=== PATIENT | female | born 1970 | race Caucasian/White ===

== ENCOUNTER 2017-09-23 02:17 | Inpatient (IN) | payer OTHER ==
[~2017-09-23] VITALS: Ht 160 cm; Wt 77.1 kg
--- NOTE | 2017-09-23 02:23 | NUR ---
PT AMBULATORY TO ER BED 7. PT BIB FAMILY C/O CP SINCE 10 AM YESTERDAY. PT STATES SHE DID HAVE SOME SOB WITH THE CP. PT PLACED IN GOWN AND ON GUIDANCE SERVICES COORDINATOR. VSS/RESP EVEN UNLABORED/NAD NOTED/SKIN WARM AND DRY/DENIES N-V-D/AOX4. AWAITING MD NAVARRO.
--- NOTE | 2017-09-23 02:45 | NUR ---
18G IV TO L AC USING ASEPTIC TECH, BLOOD HANDED OVER TO THE LAB.
--- NOTE | 2017-09-23 02:47 | NUR ---
EMT AT BEDSIDE FOR EKG.
--- NOTE | 2017-09-23 02:50 | NUR ---
AT BEDSIDE FOR EVAL.
[2017-09-23] MEDS ORDERED: ASPIRIN 81 MG TAB.CHEW PO ONE (03:00)
[2017-09-23] MEDS ORDERED: ASPIRIN 81 MG TAB.CHEW ONE (03:13)
[2017-09-23 03:14] LABS: BASOPHILS % (AUTO) 0.4 % (0.0-2.0); EOSINOPHILS # (AUTO) 0.1 /CMM (0.0-0.7); EOSINOPHILS % (AUTO) 1.5 % (0.0-6.0); HEMATOCRIT 37 % (33-45); HEMOGLOBIN 12.3 g/dL (11.5-14.8); LYMPHOCYTES # (AUTO) 3.5 /CMM (0.8-4.8); MEAN CORPUSCULAR HEMOGLOBIN 26 PG (26.0-33.0); MEAN CORPUSCULAR HGB CONC 34 g/dl (31.0-36.0); MEAN CORPUSCULAR VOLUME 77 fL (82-100); MONOCYTES # (AUTO) 0.6 /CMM (0.1-1.30); MONOCYTES % (AUTO) 6.6 % (2.0-12.0); NEUTROPHILS # (AUTO) 4.9 /CMM (1.8-8.9); NEUTROPHILS % (AUTO) 53.5 % (43.0-81.0); PLATELET COUNT (AUTO) 269 /CMM (150-450); RED BLOOD CELL COUNT(AUTO) 4.77 MIL/uL (4.0-5.2); WHITE BLOOD COUNT (AUTO) 9.1 K/uL (4.3-11.0)
[2017-09-23 03:26] LABS: CALCIUM, SERUM 8.7 mg/dL (8.5-10.1); CARBON DIOXIDE 27 mmol/L (21-32); CHLORIDE 105 mmol/L (98-107); CREATININE 0.7 mg/dL (0.6-1.3); GLUCOSE 123 mg/dL (74-106); POTASSIUM 3.7 mmol/L (3.5-5.1); SODIUM SERUM 142 mmol/L (136-145); UREA NITROGEN, BLOOD 12 mg/dL (7-18)
[2017-09-23 03:28] LABS: INR 0.9 (0.87-1.13); PROTHROMBIN TIME 9.3 SECS (9.5-12.7)
[2017-09-23 03:35] LABS: TROPONIN I < 0.017 ng/mL (0.00-0.056)
--- NOTE | 2017-09-23 04:10 | NUR ---
PT SPEAKING WITH FAMILY AT BEDSIDE. VSS.
--- NOTE | 2017-09-23 06:00 | NUR ---
PT UP TO THE RESTROOM WITH STEADY GAIT.
--- NOTE | 2017-09-23 06:30 | NUR ---
Jossie streeter in EDM - 09/23/17 at 0712 by BRENNEN MD AT BEDSIDE SPEAKING WITH HUSBAND. PITTS.
--- NOTE | 2017-09-23 07:24 | NUR ---
REPORT GIVEN TO PRAKASH ANDREWS FOR STEPHANIE.
--- NOTE | 2017-09-23 10:23 | NUR ---
PT TRANSPORTED TO [facility]
[2017-09-23 10:42] LABS: ALBUMIN 3.5 g/dL (3.4-5.0); BILIRUBIN,TOTAL 0.2 mg/dL (0.2-1.0); MAGNESIUM 1.7 mg/dL (1.8-2.4); PHOSPHORUS 3.4 mg/dL (2.5-4.9); TOTAL PROTEIN, SERUM 7.3 g/dL (6.4-8.2)
--- NOTE | 2017-09-23 10:55 | NUR ---
RN NOTES: PATIENT ADMITTED FROM ER. PATIENT STABLE. NONLABORED BREATHING NOTED ON ROOM AIR. NO SIGNS OF DISTRESS NOTED. PATIENT STATES THAT CHEST PAIN IS MILD AND IS AT A 4, NONRADIATING, NO PRESSURE IS FELT AT THE MOMENT. NO SHORTNESS OF BREATH, PATIENT STATES THAT PAIN IS ALLEVIATED WHEN SHE RESTS. VS WNL.IV SITE ON LEFT AC PATENT AND INTACT. WILL CONTINUE TO MONITOR PATIENT. PATIENT IS SINUS RHYTHM ON MONITOR
[2017-09-23 11:00] VITALS: BP 125/80
--- NOTE | 2017-09-23 12:00 | NUR ---
RN NOTES: PER DR HIGH: ADMIT PATIENT TO UNIT, TELE PATIENT ON CARDIAC DIET NORVASC 5 MG PO DAILY TYLENOL 650 MG PO Q 6 HOURS PRN ASPIRIN 81 MG PO DAILY [id number] 40 MG PO DAILY AM LABS: LIPID PROFILE, A1C CBC, BMP TROPONIN Q4 HOURS X2, ONE ORDER PLACED BY DR DE LOS SANTOS AT [address] DE LOS SANTOS
[2017-09-23] MEDS ORDERED: ASPIRIN 81 MG TAB.CHEW PO SCH (12:30)
[2017-09-23] MEDS ORDERED: REGADENOSON 0.4 MG/5 ML DISP.SYRIN IVP ONE (12:30)
[2017-09-23] MEDS ORDERED: AMLODIPINE BESYLATE 5 MG TABLET PO SCH (12:30)
[2017-09-23] MEDS ORDERED: ACETAMINOPHEN 325 MG TABLET PO PRN (12:30)
[2017-09-23] MEDS ORDERED: PANTOPRAZOLE 40 MG TABLET.DR PO SCH (12:30)
[2017-09-23 16:00] VITALS: BP 158/67
--- NOTE | 2017-09-23 18:00 | NUR ---
RN NOTES: CALLED LAB REGARDING TROPONIN DRAW ORDER AT 1500, LAB TO DRAW IT TYLENOL GIVEN TO PATIENT, PATIENT STATES HAVING A MILD HEADACHE, BP WITHIN NORMAL RANGE, PATIENT PERRLA
--- NOTE | 2017-09-23 19:00 | NUR ---
RN NOTES: PATIENT DISCHARGED HOME PER DR HIGH'S ORDERS. DISCUSSED STRESS TEST RESULTS WITH PATIENT AND FAMILY.EXISTCARE DISCUSSED WITH PATIENT WELL. PATIENT VERBALIZED UNDERSTANDING. PATIENT REFUSED FLU VACCINE, BENEFITS AND RISKS EXPLAINED. PATIENT STATES THAT CHEST PAIN IS MILD, 3, NONRADATING, DOES NOT FEEL LIKE PRESSURE. VS WNL. IV LINE REMOVED. PATIENT GIVEN VALUABLES. TELE BOX REMOVED, PATIENT LEFT WITH DAUGHTER BRYANNA VIA PRIVATE CAR
== END 2017-09-23 19:00 | disposition home or self-care (01) | DRG 203 ==
LOC: ER 02:27 → TRANSITION 07:30 → MED 10:27 → TELE 10:58
PROVIDERS: ADMIT Internal Medicine; ATTEND Internal Medicine
DX: M94.0 Chondrocostal junction syndrome [Tietze] (principal); I10 Essential (primary) hypertension; I25.10 Atherosclerotic heart disease of native coronary artery without angina pectoris; Z79.899 Other long term (current) drug therapy; Z83.3 Family history of diabetes mellitus; Z82.49 Family history of ischemic heart disease and other diseases of the circulatory system
CPT/HCPCS: 36415; 71045-TC; 80048-TC; 80076-TC; 82728-TC; 82962-TC; 83540-TC; 83735-TC; 84100-TC; 84484-TC; 85025-TC; 85730-TC; 87081-TC; A4606; A9502; J2785; Z7610

== ENCOUNTER 2019-01-05 23:12 | Inpatient (IN) | payer OTHER ==
[~2019-01-05] VITALS: Ht 160 cm; Wt 79.4 kg
--- NOTE | 2019-01-05 23:23 | NUR ---
BIBS. C/O "HAVING SOB AND CHEST PAIN SINCE 5PM TODAY" -SOB NOTED. AOX4. AMBULATORY. -N/V -DIZZY
[2019-01-05] MEDS ORDERED: KETOROLAC TROMETHAMINE 15 MG/ML VIAL ONE (23:59)
[2019-01-05] MEDS ORDERED: ALPRAZOLAM 0.5 MG TABLET ONE (23:59)
[2019-01-06] MEDS ORDERED: ALPRAZOLAM 0.5 MG TABLET PO ONE
[2019-01-06] MEDS ORDERED: KETOROLAC TROMETHAMINE INJ 30 MG/ML VIAL IV ONE
[2019-01-06] MEDS ORDERED: IV NS 0.9% 1,000 ML BAG IV ONE
[2019-01-06 00:09] LABS: BASOPHILS % (AUTO) 0.4 % (0.0-2.0); EOSINOPHILS % (AUTO) 2.5 % (0.0-6.0); HEMATOCRIT 38 % (33-45); HEMOGLOBIN 12.6 g/dL (11.5-14.8); LYMPHOCYTES # (AUTO) 3.2 /CMM (0.8-4.8); LYMPHOCYTES % (AUTO) 42.5 % (20.0-44.0); MEAN CORPUSCULAR HGB CONC 33 g/dl (31.0-36.0); MEAN CORPUSCULAR VOLUME 80 fL (82-100); MONOCYTES # (AUTO) 0.6 /CMM (0.1-1.30); MONOCYTES % (AUTO) 8.2 % (2.0-12.0); NEUTROPHILS # (AUTO) 3.5 /CMM (1.8-8.9); NEUTROPHILS % (AUTO) 46.4 % (43.0-81.0); PLATELET COUNT (AUTO) 264 /CMM (150-450); WHITE BLOOD COUNT (AUTO) 7.5 K/uL (4.3-11.0)
[2019-01-06 00:51] LABS: CALCIUM, SERUM 8.5 mg/dL (8.5-10.1); CARBON DIOXIDE 25 mmol/L (21-32); CHLORIDE 103 mmol/L (98-107); CREATININE 0.7 mg/dL (0.6-1.3); GLUCOSE 129 mg/dL (74-106); POTASSIUM 3.4 mmol/L (3.5-5.1); SODIUM SERUM 140 mmol/L (136-145); UREA NITROGEN, BLOOD 14 mg/dL (7-18)
[2019-01-06 00:53] LABS: ALANINE AMINOTRANSFERASE 22 U/L (12-78); ALBUMIN 2.7 g/dL (3.4-5.0); ALKALINE PHOSPHATASE 79 U/L (46-116); ASPARTATE AMINOTRANSFERASE 17 U/L (15-37); BILIRUBIN,TOTAL 0.2 mg/dL (0.2-1.0); LIPASE 190 U/L (73-393); TOTAL PROTEIN, SERUM 7.1 g/dL (6.4-8.2)
[2019-01-06] MEDS ORDERED: ASPIRIN 325 MG TABLET ONE (01:29)
[2019-01-06] MEDS ORDERED: ASPIRIN 325 MG TABLET PO ONE (01:30)
--- NOTE | 2019-01-06 02:43 | NUR ---
VERBAL AUTHORIZATION RECEIVED FROM [facility] COACH MOISE FOR ADMISSION
--- NOTE | 2019-01-06 02:44 | NUR ---
DR CROW REACHED FOR ADMITTING ORDERS
--- NOTE | 2019-01-06 03:54 | NUR ---
REPORT GIVEN TO LISSA RANDALL.
--- NOTE | 2019-01-06 04:25 | NUR ---
HEAD INSPECTOR AND CENTER MARKER ADMISSION NOTES RECEIVED PATIENT FROM ER VIA [place]. DX. CHEST PAIN. PATIENT IS ALERT AND ORIENTED X4, VERBALLY RESPONSIVE, ABLE TO MAKE NEEDS KNOWN. ANDORRAN SPEAKER. BREATHING EVEN AND UNLABORED. NO SOB NOTED. TOLERATING ROOM AIR. CURRENTLY WITH NO COMPLAINTS OF PAIN OR DISCOMFORT. NO FACIAL GRIMACING. IV ON LEFT FOREARM INTACT AND PATENT. SKIN DRY AND WARM TO TOUCH. AFEBRILE. SKIN CHECK RENDERED WITH NO SKIN ISSUES FOUND. NO EDEMA. ABDOMEN SOFT, NONDISTENDED. BELONGINGS ACCOUNTED FOR. ORIENTED TO THE USE OF UNIT AMENITIES. SAFETY MEASURES IN PLACE. CALL LIGHT WITHIN REACH. WILL CONTINUE TO MONITOR.
[2019-01-06] MEDS ORDERED: IV D5/0.45 NACL 1,000 ML IV PRN (05:00)
[2019-01-06] MEDS ORDERED: HYDROCODONE/APAP 5/325MG 1 EACH TABLET PO PRN (05:00)
[2019-01-06] MEDS ORDERED: ACETAMINOPHEN 325 MG TABLET PO PRN (05:00)
[2019-01-06 05:50] VITALS: BP 139/78
[2019-01-06 06:40] LABS: BASOPHILS % (AUTO) 0.7 % (0.0-2.0); EOSINOPHILS % (AUTO) 2.8 % (0.0-6.0); HEMATOCRIT 35 % (33-45); HEMOGLOBIN 11.5 g/dL (11.5-14.8); LYMPHOCYTES # (AUTO) 2.9 /CMM (0.8-4.8); LYMPHOCYTES % (AUTO) 46.6 % (20.0-44.0); MEAN CORPUSCULAR HGB CONC 33 g/dl (31.0-36.0); MEAN CORPUSCULAR VOLUME 79 fL (82-100); MONOCYTES # (AUTO) 0.5 /CMM (0.1-1.30); MONOCYTES % (AUTO) 7.8 % (2.0-12.0); NEUTROPHILS # (AUTO) 2.6 /CMM (1.8-8.9); NEUTROPHILS % (AUTO) 42.1 % (43.0-81.0); PLATELET COUNT (AUTO) 235 /CMM (150-450); RED BLOOD CELL COUNT(AUTO) 4.37 MIL/uL (4.0-5.2); WHITE BLOOD COUNT (AUTO) 6.1 K/uL (4.3-11.0)
--- NOTE | 2019-01-06 06:52 | NUR ---
CONE CLEANER CLOSING NOTES PATIENT RESTING IN BED. NO ACUTE CHANGES. BREATHING EVEN AND UNLABORED. NO SOB NOTED. TOLERATING ROOM AIR. CURRENTLY WITH NO COMPLAINTS OF PAIN OR DISCOMFORT. NO FACIAL GRIMACING. IV ON LEFT FOREARM INTACT AND PATENT WITH IVF INFUSING. SKIN DRY AND WARM TO TOUCH. AFEBRILE. ALL OTHER NEEDS MET. SAFETY MEASURES IN PLACE. CALL LIGHT WITHIN REACH. WILL ENDORSE TO ONCOMING NURSE FOR STEPHANIE.
[2019-01-06] MEDS ORDERED: POTASSIUM CHLORIDE 20 MEQ TAB.PRT.SR PO SCH (07:00)
[2019-01-06 07:01] LABS: CREATININE 0.5 mg/dL (0.6-1.3); MAGNESIUM 1.8 mg/dL (1.8-2.4); POTASSIUM 3.8 mmol/L (3.5-5.1)
[2019-01-06] MEDS ORDERED: PANTOPRAZOLE 40 MG TABLET.DR PO SCH (07:30)
--- NOTE | 2019-01-06 07:50 | NUR ---
MEDICAL BILLER CODER OPENING NOTES Received patient on room air, no sob noted, patient denies pain at this time. Patient seen lying down with no discomfort. Patient's bed at the lowest setting, call light within reach.
[2019-01-06 08:00] VITALS: BP 123/66
[2019-01-06 08:12] LABS: THYROID STIMULATING HORMONE 1.565 uIU/mL (0.358-3.74)
[2019-01-06] MEDS ORDERED: ASPIRIN 81 MG TAB.CHEW PO SCH (09:00)
[2019-01-06] MEDS ORDERED: POTASSIUM CHLORIDE 20 MEQ TAB.PRT.SR PO ONE (09:00)
[2019-01-06] MEDS ORDERED: METOPROLOL TARTRATE 50 MG TABLET PO SCH (12:00)
--- NOTE | 2019-01-06 13:34 | NUR ---
RN MS NOTES Metoprolol that is due at 1200 not given due to patient about to go to CT ANGIO. Charge nurse aware.
[2019-01-06] MEDS ORDERED: METOPROLOL TARTRATE INJ 5 MG/5 ML AMPUL ONE ×2 (15:12→15:36)
[2019-01-06] MEDS ORDERED: IOHEXOL-350 100 ML VIAL IV ONE (15:13)
[2019-01-06 16:00] VITALS: BP 123/66
[2019-01-06] MEDS ORDERED: IV NS 0.9% 500 ML IV ONE (16:00)
[2019-01-06] MEDS ORDERED: NITROGLYCERIN 4.9 GM SPRAY SL ONE (16:00)
[2019-01-06] MEDS ORDERED: METOPROLOL TARTRATE INJ 5 MG/5 ML AMPUL IVP ONE (16:00)
--- NOTE | 2019-01-06 16:56 | NUR ---
RN MS NOTES Metoprolol and nitroglycerin not given due to the medications are to be used for the CT angiogram procedure. Charge nurse aware.
--- NOTE | 2019-01-06 18:32 | NUR ---
RN MS DISCHARGE NOTES Patient discharged on room air no sob noted. Patient denies pain at this time. Patient has all her belongings with her, signed. Patient's discharged papers with her, signed and she has no concerns about the discharge instructions.
[2019-01-09 10:12] LABS: *SPE A/G RATIO 1.1 (0.7-1.7); *SPE ALBUMIN 3.2 g/dL (2.9-4.4); *SPE ALPHA-1-GLOBULIN 0.2 g/dL (0.0-0.4); *SPE ALPHA-2-GLOBULIN 0.7 g/dL (0.4-1.0); *SPE BETA GLOBULIN 1.1 g/dL (0.7-1.3); *SPE GLOBULIN, TOTAL 2.9 g/dL (2.2-3.9); *SPE M-SPIKE Not Observed g/dL (Not Observed)
== END 2019-01-06 18:25 | disposition home or self-care (01) | DRG 203 ==
LOC: ER 23:14 → TELE 01-06 03:45 → MED 01-06 08:55
PROVIDERS: ADMIT Internal Medicine; ATTEND Internal Medicine
DX: R07.89 Other chest pain (principal); D50.9 Iron deficiency anemia, unspecified; E87.6 Hypokalemia; I10 Essential (primary) hypertension; E66.9 Obesity, unspecified; Z68.31 Body mass index [BMI] 31.0-31.9, adult; G47.33 Obstructive sleep apnea (adult) (pediatric)
CPT/HCPCS: 36415; 71045-TC; 75574; 80048-TC; 80061-TC; 80076-TC; 82728-TC; 83540-TC; 83690-TC; 83735-TC; 84155; 84165; 84439-TC; 84443-TC; 84484-TC; 85025-TC; 87081-TC; 93307-TC; G0378; J1885; J3490; J7030; Q9967

== ENCOUNTER 2025-09-07 20:01 | Emergency (ER) | payer OTHER ==
[~2025-09-07] VITALS: Ht 165.1 cm; Wt 74.8 kg
[2025-09-07] MEDS ORDERED: FAMOTIDINE (20 MG) 20 MG TABLET ONE (20:52)
[2025-09-07] MEDS: FAMOTIDINE (20 MG) 20 MG TABLET PO ONE (20:54)
[2025-09-07 21:50] VITALS: BP 142/98; TEMP 97.7; O2SAT 96
[2025-09-07] MEDS ORDERED: PRED50TA PO (21:53)
== END 2025-09-07 22:07 | disposition home or self-care (01) ==
LOC: ER 20:04
DX: T78.40XA Allergy, unspecified, initial encounter (principal); I11.9 Hypertensive heart disease without heart failure; X58.XXXA Exposure to other specified factors, initial encounter
CPT/HCPCS: 99283; J7512